=== PATIENT | female | born 1995 | race African-American/Black ===

== ENCOUNTER 2019-06-06 18:06 | Emergency (ER) | payer MEDICAID ==
[~2019-06-06] VITALS: Ht 157.5 cm; Wt 79.0 kg
[2019-06-06] MEDS ORDERED: IBUPROFEN 600MG TABLET PO ONE (20:00)
[2019-06-06 22:18] VITALS: BP 120/79
== END 2019-06-06 22:19 | disposition home or self-care (01) ==
LOC: ER 18:06
DX: R07.89 Other chest pain (principal); M54.2 Cervicalgia; V49.49XA Driver injured in collision with other motor vehicles in traffic accident, initial encounter; Y93.89 Activity, other specified; Y92.89 Other specified places as the place of occurrence of the external cause; Y99.8 Other external cause status
CPT/HCPCS: 71045; 99283

== ENCOUNTER 2019-11-12 18:56 | Emergency (ER) | payer MEDICAID | END 2019-11-12 20:17 | disposition left against medical advice (07) | LOC: ER 18:56 | DX: Z53.21 Procedure and treatment not carried out due to patient leaving prior to being seen by health care provider (principal) ==

== ENCOUNTER 2019-11-12 20:59 | Emergency (ER) | payer OTHER, MEDICAID ==
[~2019-11-12] VITALS: Ht 157.5 cm; Wt 69.7 kg
[2019-11-12 23:13] VITALS: BP 110/62
== END 2019-11-12 23:14 | disposition home or self-care (01) ==
LOC: ER 20:59
DX: S61.411A Laceration without foreign body of right hand, initial encounter (principal); L08.9 Local infection of the skin and subcutaneous tissue, unspecified; J45.909 Unspecified asthma, uncomplicated; W45.8XXA Other foreign body or object entering through skin, initial encounter; Y93.89 Activity, other specified; Y92.89 Other specified places as the place of occurrence of the external cause
CPT/HCPCS: 99283

== ENCOUNTER 2020-01-01 10:32 | Emergency (ER) | payer MEDICAID, OTHER ==
[~2020-01-01] VITALS: Ht 157.5 cm; Wt 69.0 kg
[2020-01-01] MEDS ORDERED: ACETAMINOPHEN WITH CODEINE 300/30MG TABLET PO ONE (11:15)
[2020-01-01] MEDS ORDERED: DEXAMETHASONE 10 MG/ML VIAL IV ONE (11:15)
[2020-01-01] MEDS ORDERED: KETOROLAC 30MG/ML VIAL IV ONE (11:15)
[2020-01-01] MEDS ORDERED: CLINDAMYCIN 600 MG in DEXTROSE 5% WATER 50 ML IV ONE (11:15)
[2020-01-01] MEDS ORDERED: SODIUM CHLORIDE 0.9% 1000ML BAG (SEPSIS BOLUS) IV ONE (11:15)
[2020-01-01 11:48] LABS: BASOPHILS % 0.4 % (0.0-2.0); EOSINOPHILS % 0.2 % (0.0-5.0); HEMATOCRIT. 39.8 % (36.0-48.0); HEMOGLOBIN. 13.4 g/dL (12.0-16.0); LYMPHOCYTES % 10.5 % (20.0-50.0); MEAN CORPUSCULAR HEMOGLOBIN 29.9 pg (28.0-32.0); MEAN CORPUSCULAR VOLUME 88.8 fL (81.0-99.0); MEAN PLATELET VOLUME 8.7 fl (7.4-10.4); MONOCYTES % 8.8 % (2.0-8.0); NEUTROPHILS % 80.1 % (40.0-76.0); PLATELET 393 x1000/uL (130-400); RED BLOOD CELL COUNT 4.48 mill/uL (4.2-5.4); RED CELL DISTRIBUTION WIDTH 13.9 % (11.6-14.6)
[2020-01-01 11:55] LABS: CHLORIDE 101 mEq/L (98-107)
[2020-01-01 11:56] LABS: INR 1.1; PARTIAL THROMBOPLASTIN TIME 30.4 sec (23.4-31.0); PROTHROMBIN TIME 11.9 sec (9.6-11.0)
[2020-01-01 12:07] LABS: MONOTEST NEGATIVE (NEGATIVE)
[2020-01-01] MEDS ORDERED: KCL 20MEQ/100ML PREMIX 100 ML IV ONE (12:15)
[2020-01-01] MEDS ORDERED: VANCOMYCIN 1 G PREMIX 200 ML IV SCH (13:15)
[2020-01-01] MEDS ORDERED: IOHEXOL-300 100 ML BOTTLE ONE (14:51)
[2020-01-01 18:31] VITALS: BP 134/74
== END 2020-01-01 18:42 | disposition short-term general hospital (02) ==
LOC: ER 10:32
DX: J36 Peritonsillar abscess (principal); R65.10 Systemic inflammatory response syndrome (SIRS) of non-infectious origin without acute organ dysfunction; E86.0 Dehydration; E87.6 Hypokalemia
CPT/HCPCS: 36415; 70491; 80048; 85025; 85610; 85730; 86308; 87040; 87430; 96365; 96366; 96367; 96368; 96375; 99291; J1100; J1885; J3370; J3480; J3490; J7060; Q9967; J7030